=== PATIENT | male | born 1935 | race Hispanic/Latino ===

== ENCOUNTER 2017-12-16 06:45 | Day surgery (SDC) | payer MEDICARE, BC ==
[2017-12-06 08:04] VITALS: BMI 28.1
[2017-12-16] MEDS ORDERED: Propofol 10 mg/ml Inj (20 ML) ONE (08:51)
[2017-12-16] MEDS ORDERED: Etomidate 20 mg/10ml Inj IV ONE (08:53)
[2017-12-16] MEDS ORDERED: Sodium Chloride 0.9% 1,000 ML IV SCH (09:30)
[2017-12-16 09:50] VITALS: O2SAT 95
[2017-12-16 10:10] VITALS: RESP 18; TEMP 97.5
[2017-12-16 10:24] VITALS: PULSE 64
[2017-12-16 10:52] VITALS: BP 136/57
== END 2017-12-16 11:09 | disposition home or self-care (01) ==
LOC: ENDO 06:45
PROVIDERS: ATTEND Internal Medicine Gastroenterology
DX: D12.3 Benign neoplasm of transverse colon (principal); K57.30 Diverticulosis of large intestine without perforation or abscess without bleeding; K64.8 Other hemorrhoids; J44.9 Chronic obstructive pulmonary disease, unspecified
CPT/HCPCS: 45385; 88305; J2001; J2704; J7030; J7040

== ENCOUNTER 2018-05-25 08:47 | Inpatient (IN) | payer MEDICARE, BC ==
[2018-05-25 08:49] VITALS: BMI 27.2
--- NOTE | 2018-05-25 09:01 | ED PDOC ---
Arrival/HPI - General Historian: Patient - History of Present Illness Narrative History of Present Illness (Text): 05/25/18 09:00 82 year old male, with a past medical history of COPD, arthritis, CAD, glaucoma, Arthritis, and diverticulosis, presents to the Emergency department via EMS for worsening shortness of breath since last night. Patient reports waking up with the symptoms in the middle of the night. Patient informs taking his routine nebulizer treatments multiple times with no improvement to symptoms, prompting him to call EMS this morning. Patient reports receiving Solumedrol and Duoneb from EMS en route with improvement to symptoms. Patient states similar symptoms of COPD exacerbation 2 months ago, for which he was admitted to the hospital for further evaluation. Patient denies any other associated somatic complaints. Patient denies any fevers, chills, headache, dizziness, chest pain, cough, abdominal pain, nausea, vomiting, diarrhea, back pain, neck pain, or any other complaints. Patient informs receiving his flu shot this year. PMD: Dr. Charo Mercado Pulm: Dr. Tapia Time/Duration: 4-6 hours Symptom Onset: Gradual Symptom Course: Unchanged Activities at Onset: Light Context: Home Past Medical History - Provider Review Nursing Documentation Reviewed: Yes - Infectious Disease Hx of Infectious Diseases: None - Tetanus Immunization Tetanus Immunization: Unknown - Cardiac Hx Pacemaker: No - Pulmonary Hx Chronic Obstructive Pulmonary Disease (COPD): Yes (pt has home nebulizer machine) Other/Comment: chronic sob - Neurological Hx Paralysis: No - HEENT Hx HEENT Disorder: Yes (eyeglasses) Hx Cataracts: Yes (b/l cataract sx around 10 yrs ago) Hx Glaucoma: Yes (b/l eyes) - Renal Hx Renal Disorder: No - Endocrine/Metabolic Hx Endocrine Disorders: No Hx Adrenal Cancer: No Hx Diabetes Insipidus: No Hx Diabetes Mellitus Type 1: No Hx Diabetes Mellitus Type 2: No Hx Hyperthyroidism: No Hx Hypothyroidism: No Hx Systemic Lupus Erythematosus: No - Hematological/Oncological Hx Blood Transfusions: No Hx Blood Transfusion Reaction: No - Integumentary Hx Dermatological Disorder: No - Musculoskeletal/Rheumatological Hx Musculoskeletal Disorders: Yes - Gastrointestinal Hx Gastrointestinal Disorders: No Hx Colostomy: No Hx Crohn's Disease: No Hx Diverticulitis: No Hx Gall Bladder Disease: No Hx Gastroesophageal Reflux: No Hx Gastrointestinal Ulcer: No Hx Ileostomy: No Hx Liver Failure: No Hx Pancreatitis: No HX Swallowing Problems: No - Genitourinary/Gynecological Hx Prostate Problems: Yes (enlarged has checkups q4mo) - Psychiatric Hx Emotional Abuse: No Hx Physical Abuse: No Hx Substance Use: No - Surgical History Hx Appendectomy: Yes Hx Inguinal Hernia Repair: Yes (r and l over 20 yrs ago) - Anesthesia Hx Anesthesia: Yes Hx Anesthesia Reactions: No Hx Malignant Hyperthermia: No - Suicidal Assessment Feels Threatened In Home Enviroment: No Family/Social History - Physician Review Nursing Documentation Reviewed: Yes Family/Social History: Unknown Family HX Smoking Status: Never Smoked Hx Alcohol Use: Yes (BEER) Hx Substance Use: No Allergies/Home Meds Allergies/Adverse Reactions: Allergies No Known Allergies Allergy (Verified 05/22/14 19:34) Home Medications: Home Meds Medication Instructions Recorded Confirmed Albuterol Sulfate [Albuterol 3 ml NEB QID 05/22/14 05/25/18 Sulfate 3 ml] Budesonide [Pulmicort Respules] 0.5 mg NEB BID 05/26/17 05/25/18 Dorzolamide 2%/Timolol 0.5% 1 drop BOTHEYES BID 05/26/17 05/25/18 [Cosopt Ocumeter Plus 2%-0.5% 10 Ml] Tiotropium [place] Inhaler 1 puff INH DAILY 05/26/17 05/25/18 [Spiriva Inhalation Handihaler Device] Albuterol Sulfate [Ventolin Hfa] 0.09 mg IH PRN PRN 12/06/17 05/25/18 Aspirin [Ecotrin] 81 mg PO DAILY 12/06/17 05/25/18 Apixaban [Eliquis] 5 mg PO BID 03/24/18 05/25/18 diltiaZEM [Cardizem] 180 mg PO DAILY 03/24/18 05/25/18 Review of Systems - Physician Review All systems were reviewed & negative as marked: Yes - Review of Systems Constitutional: absent: Fevers Respiratory: SOB. absent: Cough Cardiovascular: absent: Chest Pain Gastrointestinal: absent: Abdominal Pain, Diarrhea, Nausea, Vomiting Genitourinary Male: absent: Urinary Output Changes Musculoskeletal: absent: Back Pain, Neck Pain Skin: absent: Rash Neurological: absent: Headache, Dizziness Psychiatric: absent: Anxiety, Depression Physical Exam Vital Signs Reviewed: Yes Temperature: Afebrile Blood Pressure: Normal Pulse: Tachycardic Respiratory Rate: Normal Appearance: Positive for: Well-Appearing, Non-Toxic, Comfortable Pain Distress: None Mental Status: Positive for: Alert and Oriented X 3 - Systems Exam Head: Present: Atraumatic, Normocephalic Pupils: Present: PERRL Extroacular Muscles: Present: EOMI Conjunctiva: Present: Normal Mouth: Present: Moist Mucous Membranes Neck: Present: Normal Range of Motion Respiratory/Chest: Present: Good Air Exchange, Decreased Breath Sounds (bilaterally). No: Respiratory Distress, Accessory Muscle Use Cardiovascular: Present: Regular Rate and Rhythm, Normal S1, S2. No: Murmurs Abdomen: No: Tenderness, Distention, Peritoneal Signs Back: Present: Normal Inspection Upper Extremity: Present: Normal Inspection. No: Cyanosis, Edema Lower Extremity: Present: Normal Inspection. No: Edema Neurological: Present: GCS=15, CN II-XII Intact, Speech Normal Skin: Present: Warm, Dry, Normal Color. No: Rashes Psychiatric: Present: Alert, Oriented x 3, Normal Insight, Normal Concentration Medical Decision Making ED Course and Treatment: 05/25/18 09:06 Impression: 82 year old male presents to the Emergency department complaining of worsening shortness of breath. Differential Diagnosis included but are not limited to: COPD exacerbation Plan: -- EKG -- Labs -- Chest X-ray -- Albuterol -- Magnesium Sulfate -- Influenza A B -- Reassess and disposition Prior Visits: Notes and results from previous visits were reviewed. Progress Notes: 05/25/18 09:06 EKG reviewed, shows sinus tachycardia at 109 bpm. - RAD Interpretation Narrative RAD Interpretations (Text): 05/25/18 11:00 Chest X-ray reviewed by radiologist, shows: FINDINGS: LUNGS: The lungs are hyperinflated and there is peribronchial thickening with chronic changes in both lungs. There is no focal consolidation. PLEURA: No pleural effusions or pneumothorax. CARDIOVASCULAR: The heart is normal in size. Atherosclerotic aortic arch calcifications are present. OSSEOUS STRUCTURES: Within normal limits for the patient's age. VISUALIZED UPPER ABDOMEN: Normal. OTHER FINDINGS: None. IMPRESSION: No active pulmonary disease. COPD. 05/25/18 13:30 CT of Chest reviewed by radiologist, shows: FINDINGS: PULMONARY ARTERIES: Unremarkable. No pulmonary embolism. AORTA: No acute findings. No thoracic aortic aneurysm. Aortic calcifications are seen LUNGS: Unremarkable. No nodule, mass or pulmonary consolidation. PLEURAL SPACES: Unremarkable. No effusion or pneumothorax. HEART: Unremarkable. No cardiomegaly. No significant pericardial effusion. Coronary artery calcifications LYMPH NODES: No lymphadenopathy. BONES, CHEST WALL: Unremarkable. No fracture or destructive lesion OTHER FINDINGS: There is food debris in the upper esophagus. The upper esophagus is mildly dilated. This could be secondary to an esophageal stricture or dysmotility. IMPRESSION: Unremarkable CT pulmonary angiogram. No pulmonary embolus. There is food debris in the upper esophagus. The upper esophagus is mildly dilated. This could be secondary to an esophageal stricture or dysmotility. [employer] Worker: Radiologist - EKG Interpretation Interpreted by ED Physician: Yes Type: 12 lead EKG - Scribe Statement The provider has reviewed the documentation as recorded by the Hayleeibdavion Lindsey. All medical record entries made by the Hayleeibdavion were at my direction and personally dictated by me. I have reviewed the chart and agree that the record accurately reflects my personal performance of the history, physical exam, medical decision making, and the department course for this patient. I have also personally directed, reviewed, and agree with the discharge instructions and disposition. Disposition/Present on Arrival - Present on Arrival Any Indicators Present on Arrival: No History of DVT/PE: No History of Uncontrolled Diabetes: No Urinary Catheter: No History Surgical Site Infection Following: None - Disposition Have Diagnosis and Disposition been Completed?: Yes Diagnosis: COPD exacerbation Disposition: HOSPITALIZED Disposition Time: 10:30 Condition: FAIR
[2018-05-25] MEDS ORDERED: Albuterol-Ipratrop 3 mg / 0.5 (3 ml) UD IH STA (09:06)
[2018-05-25] MEDS ORDERED: Magnesium Sulfate 2 gm/50 ml 2 GM/50 ML BAG IVPB ONE (09:06)
--- NOTE | 2018-05-25 09:49 | RAD ---
Date of service: 05/25/2018 HISTORY: COPD COMPARISON: 03/22/2018. FINDINGS: LUNGS: The lungs are hyperinflated and there is peribronchial thickening with chronic changes in both lungs. There is no focal consolidation. PLEURA: No pleural effusions or pneumothorax. CARDIOVASCULAR: The heart is normal in size. Atherosclerotic aortic arch calcifications are present. OSSEOUS STRUCTURES: Within normal limits for the patient's age. VISUALIZED UPPER ABDOMEN: Normal. OTHER FINDINGS: None. IMPRESSION: No active pulmonary disease. COPD.
[2018-05-25 10:08] LABS: BASO # 0.02 K/mm3 (0.0-2.0); BASO % 0.1 % (0.0-3.0); EOS # 0.1 (0.0-0.7); EOS % 0.4 % (1.5-5.0); GRAN # 12.21 (1.4-6.5); HEMOGLOBIN 15.7 g/dL (14.0-18.0); LYMPH # 0.7 (1.2-3.4); LYMPH % 4.9 % (22.0-35.0); MEAN CELL VOLUME 91.5 fl (80.0-105.0); MEAN CORPUSCULAR HEMOGLOBIN 31.2 pg (25.0-35.0); MEAN CORPUSCULAR HGB CONC 34.1 g/dl (31.0-37.0); MEAN PLATELET VOLUME 10.3 fl (7.0-11.0); MONO # 0.6 (0.1-0.6); MONO % 4.6 % (1.0-6.0); PLATELET COUNT 155 10^3/uL (120.0-450.0); RBC 5.04 10^6/uL (3.5-6.1); RED CELL DISTRIBUTION WIDTH 13.7 % (11.5-14.5); WHITE BLOOD COUNT 13.6 10^3/uL (4.5-11.0)
[2018-05-25 10:16] LABS: ALB/GLOB RATIO 1.2 (1.1-1.8); ALBUMIN 4.3 g/dL (3.0-4.8); ALT/SGPT 47 U/L (7-56); AST/SGOT 34 U/L (17-59); BLOOD UREA NITROGEN 16 mg/dL (7-21); CALCIUM 9.2 mg/dL (8.4-10.5); GFR NON-AFRICAN AMERICAN > 60
[2018-05-25 10:24] LABS: B-TYPE NATRIURETIC PEPTIDE 784 pg/mL (0-450)
[2018-05-25 10:29] LABS: TROPONIN I 0.01 ng/mL
[2018-05-25 11:07] LABS: BAND 1 % (0-2); EOSINOPHIL 2 % (0.0-3.0); LYMPHOCYTE 4 % (22.0-35.0); MONOCYTE 2 % (1.0-6.0); NEUTROPHIL 91 % (50.0-70.0); PLATELET ESTIMATE NORMAL (NORMAL)
[2018-05-25] MEDS ORDERED: Iohexol 350 MG/100 ML VIAL ONE (11:29)
--- NOTE | 2018-05-25 13:18 | CT ---
Date of service: 05/25/2018 PROCEDURE: CT Chest with contrast (Pulmonary Angiogram) HISTORY: SOB r/o PE COMPARISON: None available. TECHNIQUE: Axial computed tomography images were obtained of the chest in the pulmonary arterial phase of enhancement. Coronal and sagittal reformatted images were created and reviewed. Intravenous contrast dose: 100 cc of Omni 350 Radiation dose: Total exam DLP = 515.45 mGy-cm. This CT exam was performed using one or more of the following dose reduction techniques: Automated exposure control, adjustment of the mA and/or kV according to patient size, and/or use of iterative reconstruction technique. FINDINGS: PULMONARY ARTERIES: Unremarkable. No pulmonary embolism. AORTA: No acute findings. No thoracic aortic aneurysm. Aortic calcifications are seen LUNGS: Unremarkable. No nodule, mass or pulmonary consolidation. PLEURAL SPACES: Unremarkable. No effusion or pneumothorax. HEART: Unremarkable. No cardiomegaly. No significant pericardial effusion. Coronary artery calcifications LYMPH NODES: No lymphadenopathy. BONES, CHEST WALL: Unremarkable. No fracture or destructive lesion OTHER FINDINGS: There is food debris in the upper esophagus. The upper esophagus is mildly dilated. This could be secondary to an esophageal stricture or dysmotility. IMPRESSION: Unremarkable CT pulmonary angiogram. No pulmonary embolus. There is food debris in the upper esophagus. The upper esophagus is mildly dilated. This could be secondary to an esophageal stricture or dysmotility.
[2018-05-25] MEDS: MethylPREDNISolone 40 mg Vial IVP SCH ×2 (14:16→21:20)
[2018-05-25] MEDS: Levalbuterol 1.25 MG/3 ML Inhal Soln UD IH SCH ×2 (14:16→19:35)
--- NOTE | 2018-05-25 15:37 | CARD ---
APPROVED REPORT Date of service: 05/25/2018 EKG Measurement Heart [id number] <Conclusion> Sinus tachycardia with premature atrial complexes with aberrant conduction Nonspecific ST abnormality Abnormal ECG
[2018-05-25] MEDS ORDERED: Dorzolamide 2%/Timolol 0.5% 100 DROP/10 ML BOTTLE OU SCH (18:00)
[2018-05-25] MEDS: diltiaZEM 180 mg/24 Hours CD Cap PO SCH (18:51)
[2018-05-25] MEDS: Budesonide 0.5 mg/2 ml Inhal Susp UD IH SCH (19:35)
--- NOTE | 2018-05-25 20:30 | HP ---
DATE: 05/25/2018 HISTORY OF PRESENT ILLNESS: This is an 82-year-old male who was brought to [facility] by 911. The patient states that this morning, upon arising, he was finding significant shortness of breath to the point where he was not able to perform his normal routine in the morning. He subsequently called family and subsequently called 911. Upon arrival to the emergency room, his temperature was 97.9, his pulse was 109, his blood pressure was 178/98, his respiratory rate was 22 with labored accessory use of muscles. His oxygen saturation was reported at 99% on room air. PAST MEDICAL HISTORY: Recent episode of new onset atrial fibrillation, a history of vocal cord tumor, a history of degenerative arthritis, and a history of COPD. HOME MEDICATIONS: Reported as Ventolin, Cardizem 180 mg daily, Spiriva, Cosopt eyedrops, Pulmicort, Eliquis. He states that he had not started his Eliquis prescription as he was having some difficulty getting the prescription. He also states that he recently was told by the cereal chemist that he had a stress test that was okay. ALLERGIES: NONE. LABORATORY DATA: WBC of 13.6, RBC of 5.04, hemoglobin 15.7, hematocrit 46.1, and platelet count 155. His D-dimer is 316. His chemistry shows normal electrolytes. His BUN is 16, creatinine is 0.8. His random blood sugar is 121. AST, ALT and alkaline phosphatase are normal. The troponin is 0.01 and BNP is 784. The chest CT is reported as showing unremarkable. CT pulmonary angiogram, no pulmonary embolus. It was noticed that there was some food debris in the upper esophagus and that the upper esophagus was mildly dilated. At the same time, a chest x-ray was reported by Radiology that shows COPD. His EKG is reported as showing a sinus tach with PACs. ASSESSMENT/PLAN: The patient that will be admitted to monitored telemetry bed. 1. A GI consult will be requested given the findings on the chest CT. However, now, the patient is stating that he had something to eat just prior to having the CT angiogram. 2. Cardiology consult will be requested. 3. Pulmonary consult will be requested. Charo Mercado MD [facility] # [id number]
[2018-05-25] MEDS: Dorzolamide 2%/Timolol 0.5% 100 DROP/10 ML BOTTLE OU SCH (21:20)
[2018-05-26] MEDS: Levalbuterol 1.25 MG/3 ML Inhal Soln UD IH SCH ×4 (02:12→19:47)
[2018-05-26 07:41] LABS: BASO # 0.01 K/mm3 (0.0-2.0); BASO % 0.1 % (0.0-3.0); GRAN # 10.55 (1.4-6.5); GRAN % 90.2 % (50.0-68.0); HEMOGLOBIN 14.8 g/dL (14.0-18.0); LYMPH # 0.7 (1.2-3.4); LYMPH % 5.6 % (22.0-35.0); MEAN CELL VOLUME 89.7 fl (80.0-105.0); MEAN CORPUSCULAR HEMOGLOBIN 31.1 pg (25.0-35.0); MEAN CORPUSCULAR HGB CONC 34.7 g/dl (31.0-37.0); MEAN PLATELET VOLUME 10.3 fl (7.0-11.0); MONO # 0.5 (0.1-0.6); MONO % 4.1 % (1.0-6.0); RBC 4.76 10^6/uL (3.5-6.1); RED CELL DISTRIBUTION WIDTH 13.4 % (11.5-14.5); WHITE BLOOD COUNT 11.7 10^3/uL (4.5-11.0)
[2018-05-26 07:48] LABS: INR 1.26; PROTHROMBIN TIME 14.6 SECONDS (9.4-12.5)
[2018-05-26 07:55] LABS: ALB/GLOB RATIO 1.2 (1.1-1.8); ALT/SGPT 36 U/L (7-56); AST/SGOT 20 U/L (17-59); BLOOD UREA NITROGEN 17 mg/dL (7-21); CALCIUM 9.1 mg/dL (8.4-10.5); GFR NON-AFRICAN AMERICAN > 60
--- NOTE | 2018-05-26 08:00 | CP.PCM.CON ---
<Amy Freed - Last Filed: 05/26/18 09:01> History of Present Illness - History of Present Illness History of Present Illness: Gastroenterology Fellow/PGY6 Consult Note 82 year old male with PMH of Afib on Eliquis, vocal cord tumor resection/radiation 2010, and COPD presenting with shortness of breath. Patient notes sudden onset of shortness of breath yesterday morning leading to ER pres entation. This morning he feels well and reports breathing to be at baseline. GI consultation for esophageal debris noted on CT chest. Patient states he ate a roll prior to entering CT chest. He notes that he sometimes drinks a cup of liquid after eating but does not relate having to drink fluids to get a food bolus to pass. Denies chest pain, nausea, vomiting, heartburn, acid reflux, bloating, hematemesis, odynophagia, globus sensation, abdominal pain, diarrhea, constipation, melena, hematochezia, or unintentional weight loss. Patient notes he ran out of Eliquis two weeks ago and has not obtained a refill. No prior EGD. Prior colonoscopy 12/2017 showed a 1cm splenic flexure tubular adenoma, descending/sigmoid diverticulosis, and internal hemorrhoids. Family History- denies colon cancer, stomach cancer Social History- quit tobacco, denies alcohol or illicit drugs Surgical History- vocal cord tumor resection, B/L inguinal hernia repair, appendectomy Review of Systems - Review of Systems Review of Systems: 12-points review of systems negative except for as above Past Patient History - Infectious Disease Hx of Infectious Diseases: None - Tetanus Immunizations Tetanus Immunization: Unknown - Past Social History Smoking Status: Former Smoker - CARDIAC Hx Cardiac Disorders: Yes Hx Congestive Heart Failure: Yes Hx Hypertension: Yes Other/Comment: Afib - PULMONARY Hx Chronic Obstructive Pulmonary Disease (COPD): Yes - NEUROLOGICAL Hx Neurological Disorder: No - HEENT Hx Cataracts: Yes Hx Glaucoma: Yes - RENAL Hx Chronic Kidney Disease: No - ENDOCRINE/METABOLIC Hx Endocrine Disorders: No - HEMATOLOGICAL/ONCOLOGICAL Hx Blood Disorders: Yes Other/Comment: 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 - INTEGUMENTARY Hx Dermatological Problems: No - MUSCULOSKELETAL/RHEUMATOLOGICAL Hx Musculoskeletal Disorders: Yes Hx Arthritis: Yes Hx Falls: No - GASTROINTESTINAL Hx Gastrointestinal Disorders: Yes Other/Comment: Diverticulosis - GENITOURINARY/GYNECOLOGICAL Hx Genitourinary Disorders: No - PSYCHIATRIC Hx Psychophysiologic Disorder: No Hx Substance Use: No - SURGICAL HISTORY Hx Surgeries: Yes Other/Comment: Catarats - ANESTHESIA Hx Anesthesia: Yes Hx Anesthesia Reactions: No Hx Malignant Hyperthermia: No Meds Allergies/Adverse Reactions: Allergies Allergy/AdvReac Type Severity Reaction Status Date / Time No Known Allergies Allergy Verified 05/22/14 19:34 - Medications Medications: Current Medications Apixaban (Eliquis) 5 mg PO BID [facility]; Protocol Last Admin: 05/25/18 18:51 Dose: 5 mg Budesonide (Pulmicort Respules) 0.5 mg IH [id number] [facility] Last Admin: 05/25/18 19:35 Dose: 0.5 mg Diltiazem HCl (Cardizem Cd) 180 mg PO DAILY [facility] Last Admin: 05/25/18 18:51 Dose: 180 mg Dorzolamide/Timolol (Cosopt 2%-0.5% Opht) 1 drop OU 1200,2200 [facility] Last Admin: 05/25/18 21:20 Dose: 1 drop Levalbuterol HCl (Xopenex) 1.25 mg IH [id number] [facility] Last Admin: 05/26/18 02:12 Dose: Not Given Methylprednisolone (Solu-Medrol) 20 mg IVP Q12 [facility] Physical Exam - Constitutional Appears: Non-toxic, No Acute Distress - Head Exam Head Exam: ATRAUMATIC, NORMOCEPHALIC - Eye Exam Eye Exam: EOMI, PERRL. absent: Scleral icterus Pupil Exam: PERRL. absent: Miosis, Mydriatic - ENT Exam ENT Exam: Mucous Membranes Moist, Normal Oropharynx - Neck Exam Neck exam: Positive for: Full Rom, Normal Inspection - Respiratory Exam Respiratory Exam: Clear to Auscultation Bilateral. absent: Rales, Rhonchi, Wheezes - Cardiovascular Exam Cardiovascular Exam: RRR, +S1, +S2. absent: Gallop, Rubs - GI/Abdominal Exam GI & Abdominal Exam: Normal Bowel Sounds, Soft. absent: Distended, Firm, Guarding, Organomegaly, Rebound, Rigid, Tenderness - Extremities Exam Extremities exam: Positive for: normal inspection. Negative for: pedal edema - Neurological Exam Neurological exam: Alert - Psychiatric Exam Psychiatric exam: Normal Affect, Normal Mood - Skin Skin Exam: Dry, Intact, Normal Color, Warm Results - Vital Signs Recent Vital Signs: Last Vital Signs Temp 97.8 F 11/08/18 17:23 Pulse 72 05/26/18 06:00 Resp 18 05/25/18 17:49 BP 160/100 H 05/25/18 18:51 Pulse Ox 95 05/25/18 17:23 - Labs Result Diagrams: 05/26/18 07:20 05/26/18 07:20 Labs: Laboratory Results - last 24 hr 05/25/18 05/25/18 05/25/18 09:40 10:00 10:00 WBC 13.6 H RBC 5.04 Hgb 15.7 Hct 46.1 MCV 91.5 MCH 31.2 MCHC 34.1 RDW 13.7 Plt Count 155 MPV 10.3 Gran % 90.0 H Lymph % (Auto) 4.9 L Meade % (Auto) 4.6 Eos % (Auto) 0.4 L Baso % (Auto) 0.1 Gran # 12.21 H Lymph # (Auto) 0.7 L Meade # (Auto) 0.6 Eos # (Auto) 0.1 Baso # (Auto) 0.02 Neutrophils % (Manual) 91 H Band Neutrophils % 1 Lymphocytes % (Manual) 4 L Monocytes % (Manual) 2 Eosinophils % (Manual) 2 Platelet Evaluation Normal PT INR D-Dimer, Quantitative 316 H Sodium 137 Potassium 4.3 Chloride 101 Carbon Dioxide 25 Anion Gap 15 BUN 16 Creatinine 0.8 Est GFR ( Amer) > 60 Est GFR (Non-Af Amer) > 60 Random Glucose 121 H Calcium 9.2 Phosphorus Magnesium 1.9 Total Bilirubin 1.4 H AST 34 ALT 47 Alkaline Phosphatase 115 Lactate Dehydrogenase 490 Total Creatine Kinase 34 L Troponin I 0.01 NT-Pro-B Natriuret Pep 784 H Total Protein 8.0 Albumin 4.3 Globulin 3.6 Albumin/Globulin Ratio 1.2 Influenza Typ A,B (EIA) 05/25/18 05/26/18 05/26/18 10:00 07:20 07:20 WBC 11.7 H RBC 4.76 Hgb 14.8 Hct 42.7 MCV 89.7 MCH 31.1 MCHC 34.7 RDW 13.4 Plt Count 190 MPV 10.3 Gran % 90.2 H Lymph % (Auto) 5.6 L Meade % (Auto) 4.1 Eos % (Auto) 0.0 L Baso % (Auto) 0.1 Gran # 10.55 H Lymph # (Auto) 0.7 L Meade # (Auto) 0.5 Eos # (Auto) 0.0 Baso # (Auto) 0.01 Neutrophils % (Manual) Band Neutrophils % Lymphocytes % (Manual) Monocytes % (Manual) Eosinophils % (Manual) Platelet Evaluation PT 14.6 H INR 1.26 D-Dimer, Quantitative Sodium Potassium Chloride Carbon Dioxide Anion Gap BUN Creatinine Est GFR ( Amer) Est GFR (Non-Af Amer) Random Glucose Calcium Phosphorus Magnesium Total Bilirubin AST ALT Alkaline Phosphatase Lactate Dehydrogenase Total Creatine Kinase Troponin I NT-Pro-B Natriuret Pep Total Protein Albumin Globulin Albumin/Globulin Ratio Influenza Typ A,B (EIA) Negative for flu a/b 05/26/18 07:20 WBC RBC Hgb Hct MCV MCH MCHC RDW Plt Count MPV Gran % Lymph % (Auto) Meade % (Auto) Eos % (Auto) Baso % (Auto) Gran # Lymph # (Auto) Meade # (Auto) Eos # (Auto) Baso # (Auto) Neutrophils % (Manual) Band Neutrophils % Lymphocytes % (Manual) Monocytes % (Manual) Eosinophils % (Manual) Platelet Evaluation PT INR D-Dimer, Quantitative Sodium 136 Potassium 4.4 Chloride 102 Carbon Dioxide 24 Anion Gap 14 BUN 17 Creatinine 0.8 Est GFR ( Amer) > 60 Est GFR (Non-Af Amer) > 60 Random Glucose 148 H Calcium 9.1 Phosphorus 4.3 Magnesium 2.2 Total Bilirubin 0.7 AST 20 ALT 36 Alkaline Phosphatase 88 Lactate Dehydrogenase Total Creatine Kinase Troponin I NT-Pro-B Natriuret Pep Total Protein 7.3 Albumin 4.0 Globulin 3.3 Albumin/Globulin Ratio 1.2 Influenza Typ A,B (EIA) Assessment & Plan - Assessment and Plan (Free Text) Assessment: 82 year old male with PMH of Afib on Eliquis, vocal cord tumor resection/radiation 2010, and COPD presenting with shortness of breath. GI consultation for esophageal debris noted on CT chest. No prior EGD. Prior colonoscopy 12/2017 showed a 1cm splenic flexure tubular adenoma, descending /sigmoid diverticulosis, and internal hemorrhoids. Plan: -tolerated clear liquid diet yesterday -NPO today -EGD today to evaluate for for any underlying esophageal pathology -noted mild upper esophageal dilatation on CT chest -assess for stricture, ulcer, ring, mass lesion -history of vocal cord radiation -possible underlying dysmotility -further recommendations after EGD <Lu Green V - Last Filed: 05/26/18 23:56> Meds - Medications Medications: Current Medications Acetaminophen (Tylenol 325mg Tab) 650 mg PO Q4H PRN PRN Reason: Pain, moderate (4-7) Apixaban (Eliquis) 5 mg PO BID [facility]; Protocol Last Admin: 05/25/18 18:51 Dose: 5 mg Budesonide (Pulmicort Respules) 0.5 mg IH [id number] [facility] Last Admin: 05/26/18 19:47 Dose: 0.5 mg Diltiazem HCl (Cardizem Cd) 180 mg PO DAILY [facility] Last Admin: 05/26/18 18:36 Dose: 180 mg Dorzolamide/Timolol (Cosopt 2%-0.5% Opht) 1 drop OU 1200,2200 [facility] Last Admin: 05/26/18 21:42 Dose: 1 drop Sodium Chloride (Sodium Chloride 0.9%) 1,000 mls @ 100 mls/hr IV .Q10H [facility] Last Admin: 05/26/18 21:43 Dose: 100 mls/hr Levalbuterol HCl (Xopenex) 1.25 mg IH [id number] [facility] Last Admin: 05/26/18 19:47 Dose: 1.25 mg Methylprednisolone (Solu-Medrol) 20 mg IVP Q12 [facility] Last Admin: 05/26/18 21:42 Dose: 20 mg Results - Vital Signs Recent Vital Signs: Last Vital Signs Temp 97.8 F 05/26/18 17:55 Pulse 62 05/26/18 18:36 Resp 13 05/26/18 17:55 BP 120/59 L 05/26/18 18:36 Pulse Ox 97 05/26/18 17:55 - Labs Result Diagrams: 05/26/18 07:20 05/26/18 07:20 Labs: Laboratory Results - last 24 hr 05/26/18 05/26/18 05/26/18 07:20 07:20 07:20 WBC 11.7 H RBC 4.76 Hgb 14.8 Hct 42.7 MCV 89.7 MCH 31.1 MCHC 34.7 RDW 13.4 Plt Count 190 MPV 10.3 Gran % 90.2 H Lymph % (Auto) 5.6 L Meade % (Auto) 4.1 Eos % (Auto) 0.0 L Baso % (Auto) 0.1 Gran # 10.55 H Lymph # (Auto) 0.7 L Meade # (Auto) 0.5 Eos # (Auto) 0.0 Baso # (Auto) 0.01 PT 14.6 H INR 1.26 Sodium 136 Potassium 4.4 Chloride 102 Carbon Dioxide 24 Anion Gap 14 BUN 17 Creatinine 0.8 Est GFR ( Amer) > 60 Est GFR (Non-Af Amer) > 60 Random Glucose 148 H Calcium 9.1 Phosphorus 4.3 Magnesium 2.2 Total Bilirubin 0.7 AST 20 ALT 36 Alkaline Phosphatase 88 Troponin I Total Protein 7.3 Albumin 4.0 Globulin 3.3 Albumin/Globulin Ratio 1.2 05/26/18 07:30 WBC RBC Hgb Hct MCV MCH MCHC RDW Plt Count MPV Gran % Lymph % (Auto) Meade % (Auto) Eos % (Auto) Baso % (Auto) Gran # Lymph # (Auto) Meade # (Auto) Eos # (Auto) Baso # (Auto) PT INR Sodium Potassium Chloride Carbon Dioxide Anion Gap BUN Creatinine Est GFR ( Amer) Est GFR (Non-Af Amer) Random Glucose Calcium Phosphorus Magnesium Total Bilirubin AST ALT Alkaline Phosphatase Troponin I < 0.01 Total Protein Albumin Globulin Albumin/Globulin Ratio Attending/Attestation - Attestation I have personally seen and examined this patient.: Yes I have fully participated in the care of the patient.: Yes I have reviewed all pertinent clinical information: Yes Notes (Text): This is an addendum to GI consult report dictated by the GI Fellow.The patient was seen and examined earlier. Medical records, lab studies, imagings were reviewed. Last 24 hours events reviewed. Agreed with the above treatment plan as outlined in GI Fellow 's notes with the addition of the following 05/26/18 23:56
[2018-05-26] MEDS: Budesonide 0.5 mg/2 ml Inhal Susp UD IH SCH ×2 (08:15→19:47)
--- NOTE | 2018-05-26 09:10 | CON ---
DATE: 05/26/2018 INDICATIONS: Shortness of breath. HISTORY OF PRESENT ILLNESS: This is an 82-year-old man who is known to our practice, admitted with shortness of breath which began yesterday. Initially, it was similar to regular episodes of shortness of breath but it persisted and got worse, so he came to the emergency room and was admitted. This morning, he feels much better having received pulmonary treatments and evaluation in the emergency room, which disclosed no evidence of pulmonary embolus on a CT scan. The chest x-ray was also benign. A CT scan of the chest did demonstrate food debris in the upper esophagus and that the upper esophagus was mildly dilated. It should be noted that the patient was eating at the time he went into the CAT scan. He does not report any swallowing problems. There is no chest pain, orthopnea, PND, syncope, presyncope, lightheadedness, dizziness, vertigo, palpitation, edema, claudication, fever, chills, cough, sputum production, hemoptysis, abdominal pain, nausea, vomiting, diarrhea, constipation, melena. PAST MEDICAL HISTORY: His past medical history is notable for severe COPD. He has had paroxysmal atrial fibrillation, history of pneumonia. He is a former heavy smoker. He has a history of vocal cord cancer, treated with radiation therapy. An echocardiogram in March revealed aortic sclerosis, normal left ventricular function and mild mitral regurgitation and tricuspid regurgitation. There is a history of degenerative joint disease, cerebrovascular disease, glaucoma and bilateral inguinal hernia repairs and a remote appendectomy. There was no history of rheumatic fever, myocardial infarction, angina, congestive heart failure, diabetes, stroke, TIA, gout. MEDICATIONS: At the time of admission include albuterol, diltiazem, Cosopt, aspirin, Eliquis, Pulmicort, Spiriva. ALLERGIES: THERE WERE NO MEDICATION ALLERGIES REPORTED. SOCIAL HISTORY: He lives at home. He is ambulatory. He does not smoke at this time. He does not drink alcohol significantly. FAMILY HISTORY: Noncontributory. REVIEW OF SYSTEMS: A 10-point review of systems is otherwise unremarkable, except as noted above. PHYSICAL EXAMINATION: GENERAL: He is a well-developed man sitting on the edge of his bed in telemetry, in no acute distress. VITAL SIGNS: Notable for sinus rhythm, 70 beats per minute, afebrile. Blood pressure 114/65, respirations 18, O2 sat 95% on room air. HEENT AND NECK: Reveals no neck vein distention, thyromegaly, carotid bruits. Mucous membranes moist. Conjunctivae pink. Neck is supple. LUNGS: Lung monroy, a few scattered rhonchi. No wheezing. HEART: Revealed normal first and second heart sounds with a soft systolic murmur along the left sternal border. PMI is not displaced. ABDOMEN: Soft. Bowel sounds are present. No mass, organomegaly, tenderness, rebound, guarding, CVA tenderness or palpable abdominal aortic aneurysm. EXTREMITIES: Extremity exam revealed no cyanosis, clubbing or edema. NEUROLOGICAL: Awake, alert and oriented. SKIN: Warm and dry. No rash or cellulitis. PSYCHIATRIC: Normal as to mood and affect. IMAGING STUDIES: EKG demonstrates sinus tachycardia at 109 beats per minute, nonspecific ST wave changes, 1 PVC. A chest x-ray reveals no active pulmonary disease, COPD. CT scan of the chest has been noted. LABORATORY DATA: White count 13,600, repeat 11,700; hemoglobin/hematocrit unremarkable, platelet count is normal. PT/INR 14.6 and 1.26. D-dimer elevated at 316. Electrolytes: BUN, creatinine, blood sugars, magnesium, LFTs unremarkable. CK 34, troponin 0.01. BNP 784. Influenza A and B negative. IMPRESSION AND PLAN: Jack Mix is an 82-year-old man with a history of heavy cigarette smoking, severe chronic obstructive pulmonary disease, admitted with exacerbation of chronic obstructive pulmonary disease which has responded to therapy. His symptoms are much improved. He has a history of paroxysmal atrial fibrillation but remains in sinus rhythm. He was sent home last time on Eliquis, but apparently this has not been taken regularly, although he agrees to take it at this time. He can be out of bed. I would continue his diltiazem, aspirin and Eliquis. He is getting pulmonary treatments. An EGD is planned to further evaluate the upper esophagus based on the CT report. I will follow along with you and I will make additional recommendations based on his clinical course. Dhaval Grant MD [facility] # [id number] [facility]
[2018-05-26] MEDS: MethylPREDNISolone 40 mg Vial IVP SCH ×2 (09:38→21:42)
--- NOTE | 2018-05-26 09:42 | PN ---
DATE: 05/26/2018 SUBJECTIVE: This is an 82-year-old male, admitted for extreme shortness of breath. Nursing staff relates that there are no problems over the night. The patient states that he is breathing a little bit better this morning. PHYSICAL EXAMINATION: VITAL SIGNS: His temp is 97.8, his pulse is 77, his blood pressure is reported at 114/65, oxygen saturation is 95%. He is reported to be on 2 L of nasal oxygen. LABORATORY DATA: Shows normal electrolytes. The BUN is 17, the creatinine is 0.8. His total bilirubin is now normal at 0.7, it was 1.4. LFTs are normal. CBC shows WBC of 11.7, RBC 4.76, hemoglobin 14.8, hematocrit 42.7, platelet count is 190,000. The patient is currently at n.p.o. ASSESSMENT AND PLAN: 1. It is possible that the patient will undergo an upper endoscopy as there was a suspicion for some food in the upper esophagus during the time that he had a CT of his chest done. We are awaiting GI input. 2. He has a history of paroxysmal atrial fibrillation and not been on Eliquis due to inability to get his prescription. He has discussed this with Cardiology. 3. He is on Solu-Medrol and Xopenex by Pulmonary and Pulmicort for his underlying chronic obstructive pulmonary disease and he is on Cosopt eye drops. We will continue telemetry at this point. Consult from GI is noted. Pulmonary and Cardiology consults are pending. Charo Mercado MD
--- NOTE | 2018-05-26 12:09 | CON ---
PULMONARY CONSULTATION DATE: 05/26/2018 REASON FOR PULMONARY CONSULTATION: Chronic obstructive pulmonary disease. REFERRING PHYSICIAN: Dr. Charo Mercado. HISTORY OF PRESENT ILLNESS: The patient is an 82-year-old male, with past medical history significant for chronic obstructive pulmonary disease, paroxysmal atrial fibrillation, remote history of vocal cord tumor, who presented to [facility] with increasing shortness of breath at rest, and dyspnea on exertion - starting yesterday morning. There is no history of cough or sputum production. There is no history of chest pain, coughing up of blood, or chest pain - made worse with deep respirations. There is no history of temperatures, chills or infectious exposure. There is no history of night sweats, weight loss or appetite change prior to the above events. No history of calf pains. No history of syncope or diaphoresis. No history of recent travel or trauma. REVIEW OF SYSTEMS: No history of nausea, vomiting or diarrhea. No acute urinary symptoms. Rest of the review of systems negative. ALLERGIES: NO KNOWN ALLERGIES. SOCIAL HISTORY: Positive for tobacco and negative for alcohol. FAMILY HISTORY: No inheritable diseases. HOME MEDICATIONS: Include; Ventolin HFA, Cardizem, Spiriva, Pulmicort, Ecotrin and Eliquis. PHYSICAL EXAMINATION: GENERAL: The patient appears comfortable this morning. He is not short of breath at rest. VITAL SIGNS: Temperature is 97.8, pulse 72, respirations 18 and last blood pressure recorded in the chart 160/100. Oxygen saturation on room air is 95%. HEENT: Normocephalic and atraumatic. No JVD. CARDIOVASCULAR: Systolic ejection murmur at the lower left sternal border. No S3 gallop. LUNGS: Very minimal rhonchi appreciated. No wheezing. EXTREMITIES: Mild edema. No cyanosis. No clubbing. Calves are nontender to palpation. GI: Abdomen is soft, nontender and nondistended. Bowel sounds are positive. SKIN: No acute rash. NEUROLOGIC: Exam limited at the present time. PERTINENT LABORATORY DATA: CAT scan of the chest was done as an angiogram protocol. There is no pulmonary embolism noted. There is no nodule, mass or pulmonary consolidation noted. There is no lymphadenopathy. CBC: White count 13.6K, hemoglobin 15.7, hematocrit 46.1 and platelets of 155,000. Complete metabolic profile: Glucose 121, bilirubin 1.4. B-type natriuretic peptide 784. Rest of the metabolic profile is within normal limits. IMPRESSION: 1. Shortness of breath - resolved. 2. Mild bronchitis. 3. Chronic obstructive pulmonary disease. 4. Cardiac arrhythmias. 5. Mild leukocytosis. PLAN: The patient presents to [facility] with main complaints of increasing shortness of breath at rest, dyspnea on exertion--starting yesterday morning. He offers no other pulmonary symptoms. I did review the CAT scan of the chest as above. There are no significant abnormalities noted. On physical exam, there is only minimal bronchospasm appreciated this morning. In addition, the oxygen saturation on room air is 95%. I will continue the current nebulizer treatments and decrease the intravenous steroids this morning. Cardiology and GI evaluations are ordered. Repeat a.m. labs are pending. The patient states to feeling much, much better this morning - compared to yesterday morning. He appears significantly improved. Additional pulmonary intervention will be based on the clinical status of the patient. I will discuss the above with Dr. Mercado this morning. Thank you very much for this pulmonary consultation. Flaco Ivey MD [facility]
[2018-05-26] MEDS: Dorzolamide 2%/Timolol 0.5% 100 DROP/10 ML BOTTLE OU SCH ×2 (12:47→21:42)
[2018-05-26] MEDS ORDERED: Propofol 10 mg/ml Inj (20 ML) ONE (16:42)
[2018-05-26] MEDS ORDERED: Midazolam 2 MG/2 ML VIAL ONE (16:42)
[2018-05-26] MEDS ORDERED: Sodium Chloride 0.9% 1,000 ML IV SCH (17:30)
[2018-05-26] MEDS: diltiaZEM 180 mg/24 Hours CD Cap PO SCH (18:36)
[2018-05-27] MEDS: Levalbuterol 1.25 MG/3 ML Inhal Soln UD IH SCH ×2 (02:55→07:59)
--- NOTE | 2018-05-27 07:20 | CP.PCM.PN ---
Subjective - Date & Time of Evaluation Date of Evaluation: 05/27/18 Time of Evaluation: 07:00 - Subjective Subjective: Stable on 3R. No CP or SOB. EGD yesterday noted. V/S noted. RSR/S. Chad. PE: Lungs: clear Cor.: S1S2 Abd.: soft Ext.: no edema Neuro.: alert Objective - Vital Signs/Intake and Output Vital Signs (last 24 hours): Temp Pulse Resp BP Pulse Ox 97.8 F 70 13 120/59 L 97 05/26/18 17:55 05/27/18 06:00 05/26/18 17:55 05/26/18 18:36 05/26/18 17:55 - Medications Medications: Current Medications Acetaminophen (Tylenol 325mg Tab) 650 mg PO Q4H PRN PRN Reason: Pain, moderate (4-7) Apixaban (Eliquis) 5 mg PO BID [facility]; Protocol Last Admin: 05/25/18 18:51 Dose: 5 mg Budesonide (Pulmicort Respules) 0.5 mg IH [id number] [facility] Last Admin: 05/26/18 19:47 Dose: 0.5 mg Diltiazem HCl (Cardizem Cd) 180 mg PO DAILY [facility] Last Admin: 05/26/18 18:36 Dose: 180 mg Dorzolamide/Timolol (Cosopt 2%-0.5% Opht) 1 drop OU 1200,2200 [facility] Last Admin: 05/26/18 21:42 Dose: 1 drop Sodium Chloride (Sodium Chloride 0.9%) 1,000 mls @ 100 mls/hr IV .Q10H [facility] Last Admin: 05/26/18 21:43 Dose: 100 mls/hr Levalbuterol HCl (Xopenex) 1.25 mg IH [id number] [facility] Last Admin: 05/27/18 02:55 Dose: 1.25 mg Methylprednisolone (Solu-Medrol) 20 mg IVP Q12 [facility] Last Admin: 05/26/18 21:42 Dose: 20 mg - Labs Labs: 05/26/18 07:20 05/26/18 07:20 PT 14.6 SECONDS (9.4-12.5) H 05/26/18 07:20 INR 1.26 05/26/18 07:20 Assessment and Plan - Assessment and Plan (Free Text) Assessment: Dyspnea/Bronchitis Esophageal and gastric polyps COPD/Former Smoker CAD Pneumonia Vocal cord cancer/XRT Echo: Mild MR and TR DJD Glaucoma Bilateral hernia repairs, Appendectomy CVD Plan: As per pulm., GI, Dr. Mercado. Elective biopsy esophageal and gastric polyps while off Eliquis for 3 days, out- pt D/C home.
[2018-05-27] MEDS: Budesonide 0.5 mg/2 ml Inhal Susp UD IH SCH (07:59)
[2018-05-27 08:26] VITALS: RESP 19; TEMP 97.5; O2SAT 96
[2018-05-27] MEDS: diltiaZEM 180 mg/24 Hours CD Cap PO SCH (09:21)
[2018-05-27] MEDS: MethylPREDNISolone 40 mg Vial IVP SCH (09:21)
[2018-05-27 09:23] VITALS: BP 114/62
[2018-05-27 11:29] VITALS: PULSE 67
--- NOTE | 2018-05-27 11:44 | PN ---
DATE: 05/27/2018 PULMONARY PROGRESS NOTE SUBJECTIVE: Jack states that 2 days ago he was going about his normal activities of daily living when he developed some shortness of breath. He usually uses his rescue inhaler to care for such episodes. He did so with incomplete results. Therefore, he went to [facility] Emergency Room for further evaluation and treatment. The patient states that once in the emergency room and receiving treatments, he felt better. He was eventually admitted for followup. He was admitted for further evaluation and treatment. The patient's past history includes severe chronic obstructive pulmonary disease and coronary artery disease. The patient participates in pulmonary rehabilitation program at [facility]. His respiratory tolerance is markedly improved since starting pulmonary rehabilitation. No additional problems are noted. PHYSICAL EXAMINATION: GENERAL: The patient is comfortable in chair. No acute respiratory distress. VITAL SIGNS: Stable. He is afebrile. Pulse is 70, respiratory rate 18, blood pressure of 140/80, O2 sat on room air 96%. HEENT: Normocephalic, atraumatic. NECK: Supple. No JVD. No lymphadenopathy. No bruit, no jugular venous distention. CARDIOVASCULAR: Regular rhythm. S1, S2 without gallop or rub. Soft systolic ejection murmur has been recorded. CHEST: Global decrease in breath sounds. No rales, rhonchi or wheezing appreciated. ABDOMEN: Soft. Bowel sounds normoactive without mass, guarding, rebound. No organomegaly. EXTREMITIES: Reveal no clubbing, cyanosis or edema. There is no evidence of Homans' sign. SKIN: Shows no rash or excoriation. NEUROLOGIC: Awake, alert, oriented with no focal findings. LABORATORY DATA: CAT scan of the chest shows no pulmonary embolism or any additional cardiopulmonary abnormalities. There is no lymphadenopathy. CLINICAL IMPRESSION: 1. Episode of shortness of breath which has resolved secondary to chronic obstructive pulmonary disease. 2. Chronic obstructive pulmonary disease, moderately severe, participating in pulmonary rehabilitation program. 3. History of cardiac arrhythmias. The patient evidently had exacerbation of his COPD which was poorly responsive to inhaled bronchodilators. This has since resolved after being seen in the emergency room. He is stable at this time. PLAN: The patient remains in the hospital, receiving inhaled bronchodilators and corticosteroids. He has received some oral corticosteroids as well which on a short-term can be discontinued. The patient is stable. I believe that there is no further intervention that is required at this time. Cardiac evaluation is essential however. I have discussed the case at length with Dr. Charo Mercado. When the patient is discharged, he can take his inhaled bronchodilators and corticosteroids and long-acting muscarinic antagonist at home while at home. If he is discharged, he should see me in the office within 48-72 hours. Any change in his status, Mr. Mix is free to call me at anytime. If there are any further episodes of shortness of breath, he should make it known to Dr. Mercado and myself immediately. This however is unlikely as this event is no different than numerous other events that he has had and he is feeling comfortable at this time. It has been discussed that he should call us immediately if there is any change in his status. Ridge Tapia MD MTDD
[2018-05-27] MEDS: Dorzolamide 2%/Timolol 0.5% 100 DROP/10 ML BOTTLE OU SCH (12:29)
--- NOTE | 2018-05-27 13:14 | CP.PCM.PN ---
<Pacheco Prince - Last Filed: 05/27/18 13:14> Subjective - Date & Time of Evaluation Date of Evaluation: 05/27/18 Time of Evaluation: 09:30 - Subjective Subjective: PGY6 GI Fellow Progress Note Patient seen and examined bedside this morning. The patient states that he is feeling well and has no new complaints. No issues overnight. 12 system ROS negative except where stated Objective - Vital Signs/Intake and Output Vital Signs (last 24 hours): Temp Pulse Resp BP Pulse Ox 97.5 F L 67 19 114/62 96 05/27/18 06:00 05/27/18 10:00 05/27/18 06:00 05/27/18 09:21 05/27/18 06:00 - Medications Medications: Current Medications Acetaminophen (Tylenol 325mg Tab) 650 mg PO Q4H PRN PRN Reason: Pain, moderate (4-7) Apixaban (Eliquis) 5 mg PO BID [facility]; Protocol Last Admin: 05/25/18 18:51 Dose: 5 mg Budesonide (Pulmicort Respules) 0.5 mg IH [id number] [facility] Last Admin: 05/27/18 07:59 Dose: 0.5 mg Diltiazem HCl (Cardizem Cd) 180 mg PO DAILY [facility] Last Admin: 05/27/18 09:21 Dose: 180 mg Dorzolamide/Timolol (Cosopt 2%-0.5% Opht) 1 drop OU 1200,2200 [facility] Last Admin: 05/27/18 12:29 Dose: 1 drop Sodium Chloride (Sodium Chloride 0.9%) 1,000 mls @ 100 mls/hr IV .Q10H [facility] Last Admin: 05/26/18 21:43 Dose: 100 mls/hr Levalbuterol HCl (Xopenex) 1.25 mg IH [id number] [facility] Last Admin: 05/27/18 07:59 Dose: 1.25 mg Methylprednisolone (Solu-Medrol) 20 mg IVP Q12 [facility] Last Admin: 05/27/18 09:21 Dose: 20 mg - Labs Labs: 05/26/18 07:20 05/26/18 07:20 PT 14.6 SECONDS (9.4-12.5) H 05/26/18 07:20 INR 1.26 05/26/18 07:20 - Constitutional Appears: Non-toxic, No Acute Distress - Eye Exam Eye Exam: EOMI, PERRL - ENT Exam ENT Exam: Mucous Membranes Moist - Respiratory Exam Respiratory Exam: Clear to Ausculation Bilateral. absent: Rales, Rhonchi, Wheezes - Cardiovascular Exam Cardiovascular Exam: RRR, +S1, +S2 - GI/Abdominal Exam GI & Abdominal Exam: Soft, Normal Bowel Sounds. absent: Distended, Firm, Guarding, Rigid, Tenderness, Organomegaly - Extremities Exam Extremities Exam: Normal Inspection. absent: Pedal Edema - Neurological Exam Neurological Exam: Alert, Awake, Oriented x3 - Psychiatric Exam Psychiatric exam: Normal Affect, Normal Mood - Skin Skin Exam: Dry, Warm Assessment and Plan - Assessment and Plan (Free Text) Assessment: Patient is an 82yo male with PMHx significant for Atrial fibrillation on Eliquis, vocal cord tumor resection/radiation 2010 and COPD presenting with shortness of breath -Esophageal lesion on EGD -CAD -Paroxysmal AFib on Eliquis Plan: -S/P EGD with noted lesion in upper third of esophagus -Patient to resume Eliquis today -Maintain anticoagulation for one week; patient to follow up outpatient with Dr Green and schedule elective EGD -Diet as tolerated -OK for D/C from GI standpoint <Lu Green V - Last Filed: 05/29/18 00:15> Objective - Vital Signs/Intake and Output Vital Signs (last 24 hours): Temp Pulse Resp BP Pulse Ox 97.5 F L 67 19 114/62 96 05/27/18 06:00 05/27/18 10:00 05/27/18 06:00 05/27/18 09:21 05/27/18 06:00 - Labs Labs: 05/26/18 07:20 05/26/18 07:20 PT 14.6 SECONDS (9.4-12.5) H 05/26/18 07:20 INR 1.26 05/26/18 07:20 Attending/Attestation - Attestation I have personally seen and examined this patient.: Yes I have fully participated in the care of the patient.: Yes I have reviewed all pertinent clinical information, including history, physical exam and plan: Yes Notes (Text): p 05/29/18 00:15
--- NOTE | 2018-05-27 18:06 | DS ---
The patient was admitted to [facility] with acute exacerbation of shortness of breath and was seen in [facility]. While in [facility], he was seen by Pulmonary and Cardiology and GI. The patient had a past medical history of paroxysmal atrial fibrillation, COPD, vocal cord tumor treatment, degenerative arthritis of the spine and coronary artery disease. He had not been taking his Cardizem and Eliquis for several days as he states that he had run out of the prescription. On discharge, he had a blood pressure of 119/53, a pulse of 65, and a temperature of 97.5. His oxygen sat on room air was 96%. He was seen by Cardiology, Pulmonary and GI with clearance for discharge. While he was here, he did undergo an upper endoscopy, which showed a polyp in the esophagus and in the stomach. It was recommended that he would be followed up as an outpatient for elective endoscopy with removal of the polyps. He was advised to resume his Cardizem 100 mg daily, his Eliquis 5 mg b.i.d., and his bronchodilator therapy. He would be followed up by myself and the GI and cardiology physicians. All the clinical data that had been done had been discussed fully with the patient. He had a chest CT, which ruled out PE. He had a chest x-ray, which showed no evidence of failure. He had an electrocardiogram, which showed a sinus tach with PACs. As per the patient, he had undergone a stress test with the vocational rehabilitation consultant a week or two prior and reported as per the patient to have a stress test that was okay. Charo Mercado MD
== END 2018-05-27 13:31 | disposition home or self-care (01) | DRG 192 ==
LOC: ED 08:47 → ERH 13:47 → 3RSO 16:56
PROVIDERS: ADMIT Internal Medicine; ATTEND Internal Medicine
PROC: 3E0F7GC Introduction of Other Therapeutic Substance into Respiratory Tract, Via Natural or Artificial Opening (ICD-10-PCS; 2018-05-25)
PROC: 0DJ08ZZ Inspection of Upper Intestinal Tract, Via Natural or Artificial Opening Endoscopic (ICD-10-PCS; principal; 2018-05-26 15:15)
DX: J44.1 Chronic obstructive pulmonary disease with (acute) exacerbation (principal); I48.0 Paroxysmal atrial fibrillation; I25.10 Atherosclerotic heart disease of native coronary artery without angina pectoris; M47.819 Spondylosis without myelopathy or radiculopathy, site unspecified; I67.9 Cerebrovascular disease, unspecified; K31.7 Polyp of stomach and duodenum; K64.8 Other hemorrhoids; H40.9 Unspecified glaucoma; I08.1 Rheumatic disorders of both mitral and tricuspid valves; Z87.01 Personal history of pneumonia (recurrent); Z85.21 Personal history of malignant neoplasm of larynx; Z92.3 Personal history of irradiation; Z79.01 Long term (current) use of anticoagulants; Z79.82 Long term (current) use of aspirin; Z87.891 Personal history of nicotine dependence

== ENCOUNTER 2018-06-19 09:16 | Day surgery (SDC) | payer MEDICARE, BC ==
[2018-06-19] MEDS ORDERED: Propofol 10 mg/ml Inj (20 ML) ONE ×2 (12:06→12:57)
[2018-06-19] MEDS ORDERED: Sodium Chloride 0.9% 1,000 ML IV SCH (12:45)
[2018-06-19] MEDS ORDERED: Glycopyrrolate 0.2 mg/ml (2ml vial) ONE (12:49)
[2018-06-19 13:30] VITALS: TEMP 98.4
[2018-06-19 13:54] VITALS: RESP 18
[2018-06-19 14:27] VITALS: BP 150/56; PULSE 71; O2SAT 96
== END 2018-06-19 15:33 | disposition home or self-care (01) ==
LOC: ENDO 09:16
PROVIDERS: ATTEND Internal Medicine Gastroenterology
DX: K31.7 Polyp of stomach and duodenum (principal); D13.0 Benign neoplasm of esophagus; K29.70 Gastritis, unspecified, without bleeding; J44.9 Chronic obstructive pulmonary disease, unspecified; I25.10 Atherosclerotic heart disease of native coronary artery without angina pectoris
CPT/HCPCS: 43236; 43239; 43251; 88305; 88312; 88342; J2001; J2704; J7030

== ENCOUNTER 2018-08-02 09:08 | Outpatient (CLI) | payer MEDICARE, BC | END 2018-08-02 09:09 | disposition home or self-care (01) | LOC: LAB 09:08 ==